=== PATIENT | male | born 1955 | race Caucasian/White ===

== ENCOUNTER → 2021-07-26 07:50 | Outpatient (CLI) | payer MEDICARE, OTHER, SELFPAY ==
--- NOTE | 2021-07-26 08:16 | MRI_ITS ---
STUDY: MRI LUMBAR SPINE WITHOUT CONTRAST REASON FOR EXAM: Male, 66 years old. Pain TECHNIQUE: Standardized fat and water weighted pulse sequences were obtained in the sagittal and axial planes. COMPARISON: 31 July 2017, 04 September 2017 FINDINGS: Appearance is stable and similar to 4 years prior in 2017. There is grade 1 degenerative retrolisthesis of L2 on L3, less than 2 mm. There is degenerative grade 1 anterolisthesis of L4 on L5 and L5 on S1, less than 2 mm. The rest of the spine is aligned. Conus terminates at L1-L2. Cauda equina is compressed at L2-L3, L4-L5 and L5-S1. There is a benign hemangioma in L2. Marrow is heterogeneously degenerated and osteoporotic. There are mildly enlarged retroperitoneal lymph nodes, largest inferior to the left renal vein at 1.97 m. However, this is stable or decreased since prior. There is no hydronephrosis. Right renal lesion has decreased and is low risk appearing. T11-T12: Disc is intact with normal height and mildly degenerative morphology and hydration signal. Facet joints are unremarkable. Canal and foramina are patent. T12-L1: Disc height is maintained. The disc has normal morphology and hydration signal. Facet joints are unremarkable. Canal and foramina are patent. L1-L2: Disc height is maintained. The disc has normal morphology and hydration signal. Facet joints are unremarkable. Canal and foramina are patent. L2-L3 has severe disc collapse and degeneration. Endplates are chronically degenerated. Facets and ligament of flavum hypertrophic degenerative. There is dorsal epidural lipomatosis. Thecal sac is moderately stenotic. Foramina are moderately to severely stenotic. L3-L4: Disc height is maintained. Disc has normal morphology with degenerated dehydrated signal. Facets and ligamentum flavum are degenerated. Thecal sac is mildly compressed. Foramina are mildly stenotic bilaterally. Lateral recesses are patent. L4-L5: Disc is severely degenerated with large bulge and decreased hydration signal. Facets are severely degenerated. Ligamentum flavum flavum is thickened. Thecal sac is severely compressed. Lateral recesses are stenotic bilaterally. Foramina are moderately to severely stenotic bilaterally. L5-S1: Disc signal is degenerated with maintained height. There is mild disc degenerative morphology with bulge. Facets and ligament of flavum are severely degenerated. There is moderate dorsal epidural lipomatosis. There is moderate thecal sac stenosis and bilateral lateral recess stenosis. Foramina are moderately stenotic bilaterally, left greater than right. MRI/Spine Lumbar (Routine) IMPRESSION: 1. Stable appearance since prior. 2. 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 Neurosurgical consultation advised. 3. Moderate thecal sac stenosis at L2-L3 and L5-S1. Electronically Signed: Unruly Houston MD at 21:52 EDT Tel , Service support ,
== END ==
PROVIDERS: PCP Family Medicine; Referring Provider Anesthesiology Pain Medicine; Visit Provider Anesthesiology Pain Medicine
DX: M51.37 Other intervertebral disc degeneration, lumbosacral region (principal); M54.17 Radiculopathy, lumbosacral region
CPT/HCPCS: 72148

== ENCOUNTER → 2022-07-17 | Outpatient (CLI) | payer MEDICARE, OTHER, SELFPAY ==
[2022-07-19 09:42] LABS: Fructosamine 289 umol/L (0-285)
== END | disposition home or self-care (01) ==
LOC: MTLAB 12:02
PROVIDERS: PCP Family Medicine; Referring Provider Orthopaedic Surgery; Visit Provider Orthopaedic Surgery
DX: E11.65 Type 2 diabetes mellitus with hyperglycemia (principal)
CPT/HCPCS: 36415; 82985

== ENCOUNTER 2022-08-10 11:36 | Inpatient (IN) | payer MEDICARE, OTHER, SELFPAY ==
--- NOTE | 2022-07-31 11:57 | EKG12_ITS ---
Test Reason : PRE OP Blood Pressure : / mmHG Vent. Rate : 062 BPM Atrial Rate : 062 BPM P-R Int : 192 ms QRS Dur : 080 ms QT Int : 406 ms P-R-T Axes : 103 021 -14 degrees QTc Int : 412 ms Normal sinus rhythm Nonspecific ST abnormality Abnormal ECG Confirmed by JOSEPHINE CAMPOS, TEA ([id number]), script editor MIKE RUBIO ([id number]) on 08/01/2022 7:16:33 AM Referred By: Michael Alexandre Confirmed By:TEA BURTON MD
[2022-07-31 12:34] LABS: Absolute Lymphocyte Count 1.33 X10^3/uL (0.83-4.51); Absolute Neutrophil Count 3.2 X10^3/uL (2.0-7.7); Basophil# 0.03 X10^3/uL; Basophil% 0.6 % (0-1); Eosinophil# 0.19 X10^3/uL; Eosinophils% 3.6 % (0-5); Hematocrit 47.3 % (40-54); Hemoglobin 16.2 g/dL (13.0-16.5); Lymphocyte # 1.33 X10^3/ul (0.83-4.51); Lymphocyte % 25.3 % (19-41); Mean Corp Hgb Conc 34.2 g/dL (32-36); Mean Corpuscular Hgb 30.7 pg (27.0-32.0); Mean Corpuscular Volume 89.6 fL (80-94); Mean Platelet Vol. 11.5 fl (6.2-12.0); Monocyte# 0.41 X10^3/uL; Monocyte% 7.8 % (0-10); NRBC Flagged by Analyzer 0 % (0-5); Neutrophil # 3.21 X10^3/uL (2.7-7.7); Neutrophil % 61.2 % (47-70); Platelet Count 166 K/mm3 (150-450); Red Blood Count 5.28 M/mm3 (4.6-6.2); White Blood Count 5.3 K/mm3 (4.4-11.0)
[2022-07-31 13:06] LABS: Anion Gap 7 (5-15); BUN 24 mg/dL (7-18); BUN/Creat Ratio 23.5 RATIO (10-20); Calcium,Total 8.9 mg/dL (8.5-10.1); Chloride 105 mmol/L (98-107); Creatinine, Serum 1.02 mg/dL (0.70-1.30); EST Glomerular Filtration Rate 78 mL/min (>60); Est Glom Filt Rate - Afr Amer 94 mL/min (>60); Glucose 147 mg/dL (74-106); Potassium 3.6 mmol/L (3.5-5.1); Sodium Level 141 mmol/L (136-145)
[2022-07-31 13:35] LABS: HIV - WCH Non-Reactive (Nonreactive); Hepatitis B Surface Antibody Non-Reactive; Hepatitis C Antibody Non-Reactive (Nonreactive)
[2022-08-02 09:12] LABS: Hepatitis A AB, Total Negative (Negative)
--- NOTE | 2022-08-09 17:01 | PCM.HP.BLA ---
History and Physical Addendum MR#: [id number] Acct: [id number] Name:JOHN BOYLE Rep #: [id number] : 1955 ? ? Provider: Dr. Michael Alexandre DO Age/Sex:? 66/M ? ? Location: [facility] [place] Status: Signed Intake Vital Signs ? 02/12/2208:20 Height 5 ft 9 in Weight: 203 lb BMI 29.9 Intake Visit Reasons:?LUMBER SPINE Allergies Penicillins Allergy (Verified 03/01/17 11:33) HivesSulfa (Sulfonamide Antibiotics) Allergy (Verified 03/01/17 11:33) Hives Medications amlodipine 10 mg tablet mg PO 02/11/22 [History Confirmed 02/11/22] atenolol 100 mg tablet mg PO 02/11/22 [History Confirmed 02/11/22] benazepril 40 mg tablet mg PO 02/11/22 [History Confirmed 02/11/22] glipizide 10 mg tablet, extended release 24 hr mg PO 02/11/22 [History Confirmed 02/11/22] hydrocodone 7.5 mg-acetaminophen 325 mg tablet tab PO 02/11/22 [History Confirmed 02/11/22] metformin 1,000 mg tablet mg PO 02/11/22 [History Confirmed 02/11/22] potassium chloride 20 mEq tablet,extended release(part/cryst) meq PO 02/11/22 [History Confirmed 02/11/22] PFSH Medical History?(Updated 02/11/22 @ 10:[address] Michael Alexandre, DO) Hx of melanoma of skin Social History Smoking Status:? Never smoker alcohol intake:? never substance use type:? does not use what type of physical activity do you participate in:? none HPI LUMBER SPINE Details: Parts of this documentation were recorded by a scribe, this documentation accurately reflects the service provided and the decisions made by me, Dr. Michael Alexandre DO JOHN MUÑOZ is a 66 year old M here today for We are having problems with our computer system today unfortunately.? Nonetheless I lost the scribe's note but I will dictate history is well as I can remember.? He has been having low back pain for 10 years.? He has a lot of pain in his legs and his back at night when he is trying to sleep.? Oddly enough he can walk for a good ways without too much neurogenic claudication.? He was scheduled for surgery by Dr. Sotomayor at the [facility] [place].? However his hemoglobin A1c was over [address] Sotomayor canceled the case.? This is understandable of course.? I told him that I would like the hemoglobin A1c to be below 7.5 before I do surgery.? He also has CLL.? He has been in remission for 9 months now. On examination he has pain with flexion or extension of his lumbar spine.? But he has good motor strength of all the major muscle groups of both lower extremities.? He has 1+ patellar reflexes bilaterally and absent Achilles reflexes bilaterally.? But he has no muscle atrophy.? He has no long tract signs.? Clonus is absent Babinski's are downgoing.? He can stand on his toes and he can stand on his heels. Review of the MRI scan demonstrates that he has marked stenosis particularly at L4-5.? He has significant stenosis but less so at L5-S1.? Apparently this are the [address] Sotomayor was going to do.? We will follow his hemoglobin A1c.? We will put him on the schedule for lumbar laminectomy decompression at L5-S1 and L4-5.? I will see him again at preop. Coding Level of Care Code Off vis,new,level 3 Diagnoses Low back pain? M54.42; M54.41; G89.29 ? ? ? Chronicity: chronic ? ? ? Back pain laterality: bilateral ? ? ? Sciatica presence: with sciatica ? ? ? Sciatica laterality: bilateral sciatica Diabetes mellitus? E11.9 Chronic lymphocytic leukemia in remission? C91.11 Spinal stenosis of lumbar region with neurogenic claudication? M48.062 Time Spent (min) 30 Assessment and Plan Assessment and Plan (1) Low back pain:
[2022-08-10] VITALS (14 sets, daily range): BP systolic 111–165; BP diastolic 67–95; PULSE 60–75; RESP 14–22; TEMP 35.6–36.8; O2SAT 91–100; BMI 29.6
[2022-08-10] MEDS: Lactated Ringers 1,000 ML 15 ML IV ×2 (06:30→10:30)
[2022-08-10 06:35] LABS: Bedside Glucose 170 mg/dL (74-106)
[2022-08-10] MEDS: Acetaminophen 500 MG Tablet 1000 MG PO (06:45)
[2022-08-10] MEDS: Clindamycin 900 MG/50 ML BAG 75 MG IV ×3 (08:06→23:21)
[2022-08-10] MEDS: THROMBIN (RECOMBINANT) 20,000 UNIT VIAL 20000 UNIT TOPICAL (08:38)
--- NOTE | 2022-08-10 08:55 | RAD_ITS ---
STUDY: X-RAY - LUMBAR SPINE REASON FOR EXAM: Male, 67 years old. LUMBAR LAMINECTOMY DECOMPRESSION L4-5 L5-S1 TECHNIQUE: 1 view(s) of the lumbar spine were obtained. COMPARISON: Comparison is made with prior study dated 02/11/2022. FINDINGS: The localization instrument is seen posterior to the L5-S1 disc space level. RAD/Spine 1 View Any Level IMPRESSION: The localization instrument is seen posterior to the L5-S1 disc space level. Electronically Signed: Navarro Sykes MD at 9:12 EDT ,
--- NOTE | 2022-08-10 11:44 | OP.PCM_ITS ---
Report of Operation Description of Surgical Findings:: Preoperative diagnosis: Spinal stenosis L5-S1 and L4-5 Postoperative diagnosis: Same Procedures: #1 lumbar laminectomy decompression L5-S1 CPT code 66925 #2 lumbar laminectomy decompression L4-5 CPT code 19681/51 Surgeon: Dr. Alexandre assistant pressman: Jose RUSSELL Anesthesia: General endotracheal administered by [facility] EBL: 40 cc Drains: Medium Hemovac Complications: None Procedure: The patient was taken to the OR where he was placed under general endotracheal anesthesia. A Mendoza catheter was inserted. Neuro monitoring placed their leads on the patient. Then moved to the Jovanny frame onto a prone position with care to protect his bony prominences his genitalia the brachial plexus bilaterally and the ulnar nerves of both elbows the neck and facial features. The back was then prepped and draped in standard fashion. I then made a longitudinal incision centered over L4-5 and L5-S1. Subcutaneous tissues were incised the length of the skin incision. First I opened the lumbar fascia to the left of the spinous processes elevate the paravertebral muscles off the lamina of S1 L5 and L4. An intraoperative x-ray was taken with a marker in place at L5-S1 that confirmed that we were indeed at that proper level. This was marked. Then opened the lumbar fascia to the right of the spinous processes elevating the paravertebral muscles off the lamina of 4 5 and S1. Thorough irrigation was carried out repeatedly in the course of the case. The super slide retractors were then put in place. We then removed the spinous processes of L5 and the spinous process of L4 with double-action rongeurs. Then thinned down the lamina on both sides with the same 45 degree Kerrison rongeurs. I then placed an angled curette under the lamina of L5 and released the ligamentum flavum underneath the lamina. Both #3 and #4 Kerrison rongeurs were used to perform the laminectomy. The laminectomy was bilateral. While the ligament was still in place to protect we open the lateral recesses with a 45 degree Kerrison rongeurs. We then began removal of the ligamentum flavum with 45 degree Kerrison rongeurs on both sides. Finished the decompression from the left side of the patient decompressing the right side at L5-S1. This completely opened the canal at that level. We then moved up and release ligamentum flavum off the underside of the lamina of L4 in same fashion. Again the #3 #4 Kerrison rongeurs were used to perform the laminectomy note that he had very hard bone and had to thin it down with double-action rongeurs. Once the laminectomy was completely performed I then had to remove the ligamentum flavum which was the major portion of the stenosis. This was done very carefully oftentimes using cottonoids under the ligament to protect the dura. This was as tedious process but I was able to remove part of the left sided ligamentum flavum and all of the ligamentum flavum on the right side all the way out the lateral recess. I then moved to the opposite side of the table that is on the right and I decompressed L5-S1 and L4-5 completely on the left with a 45 degree Kerrison rongeurs again great care was taken to protect the dura with cottonoids. Again noted we thoroughly irrigated every 10 to 50 minutes in the course of the case. This completely decompressed the nerve we checked the foramina at both levels on both sides with a hockey-stick and was found to be very open. Finally a amniotic membrane was placed directly over the exposed dura to prevent adhesions. Gelfoam was placed over the top of that. A medium Hemovac drain was inserted. We closed the lumbar fascia using [id number] suture with #1 Vicryl followed by closure of subcutaneous tissues with 2-0 Vicryl in layers in interrupted fashion. Finally the skin was approximated using skin clips.. Sterile dressi ngs were then applied the patient was then recovered in the OR moved to his hospital bed and taken to recovery in satisfactory condition. This the end of operative summary on Michael Jauregui. This is Dr. Alexandre dictating.
[2022-08-10 12:36] LABS: Bedside Glucose 147 mg/dL (74-106)
--- NOTE | 2022-08-10 13:17 | SUR.PHASEI ---
DRESSING DRY AND INTACT TO BACK
[2022-08-10] MEDS: Ondansetron 4 MG/2 ML Vial IV (14:14)
[2022-08-10] MEDS: 0.9% Saline Lock 10 ML Syringe IV (14:14)
--- NOTE | 2022-08-10 14:23 | NURSING ---
pt states that he cannot take 1000mg q8 hrs, states that is drops his WBC. states he can take 325mg dose ATC for no more than 1300mg. Dr. Alexandre paged
--- NOTE | 2022-08-10 15:02 | PN.HOSP_ITS ---
Subjective Subjective Consult requested by Dr. Alexandre for post-operative medical mgmt after L4-5 and L5-S1 laminectomy. Currently, patient feels fine. Denies any LE pain. Objective Data Objective Data Vital Signs: Vital Signs Temp Pulse Resp BP Pulse Ox O2 Del Method O2 Flow Rate 35.6 C L 65 16 115/71 97 Nasal Cannula 4 08/10/22 13:44 08/10/22 13:44 08/10/22 13:44 08/10/22 13:44 08/10/22 13:44 08/10/22 13:44 08/10/22 13:44 Oxygen Flow Rate (L/min) 4 Oxygen Delivery Method Nasal Cannula Weight: 91 kg Body Mass Index (BMI) 29.6 Intake & Output: Intake and Output for Last 24 Hours 08/08/22 08/09/22 08/10/22 23:59 23:59 23:59 Intake Total 1203.25 / 1203.25 Output Total 475 / 475 Balance 728.25 / 728.25 Lab / Micro Data Result Diagrams: 07/31/22 12:16 07/31/22 12:16 Labs: Laboratory Results - last 24 hr 08/10/22 06:15: POC Glucose 170 H 08/10/22 12:14: POC Glucose 147 H Micro: Microbiology 07/31/22 12:16 Swab (Method) Nasal Screen MRSA/MSSA - Final Radiography Diagnostic Testing: Radiology Impression Spine X-Ray 08/10/22 08:55 IMPRESSION: The localization instrument is seen posterior to the L5-S1 disc space level. Electronically Signed: Navarro Sykes MD at 9:12 EDT , Physical Exam Const alert and no apparent distress HEENT head/scalp atraumatic Resp normal respiratory effort, no retractions, no use of accessory muscles and clear to auscultation bilaterally Cardio regular rate, regular rhythm, S1 normal heart sound and S2 normal heart sound GI normal to inspection, nondistended, normoactive bowel sounds, soft to palpation and non-distended Extremity normal to inspection Assessment & Plan Assessment/Plan (1) Diabetes: QUALIFIERS: Diabetes mellitus type: type 2 Diabetes mellitus penitentiary insulin use: without penitentiary use Diabetes mellitus complication status: with hyperglycemia Qualified Code(s): E11.65 - Type 2 diabetes mellitus with hyperglycemia PLAN: Stable. Continue with his home medications Jardiance, glimepiride and metformin. Will add sliding scale insulin. I do not anticipate the patient being discharged with insulin and patient was informed of this. (2) Spinal stenosis of lumbar region with neurogenic claudication: PLAN: Status post laminectomy of L4-5 and L5-S1. Management per spine surgery Therapy has been ordered PLAN: Plan Hypertension: Currently controlled. Continue with atenolol, amlodipine VTE prophylaxis: With SCDs. Will defer chemical prophylaxis to spine surgery, if indicated. Thank you the consult. The hospital service will follow along during this patient's hospitalization. Charges/Coding Visit Charges Inpatient E&M: 80816 Subs Hosp L2
[2022-08-10] MEDS: diazePAM 5 MG Tablet PO ×2 (15:43→23:18)
[2022-08-10] MEDS: Lactated Ringers 1,000 ML 100 ML IV (16:44)
[2022-08-10] MEDS: metFORMIN HCl 1,000 MG Tablet 1000 MG PO (16:47)
[2022-08-10] MEDS: Acetaminophen 325 MG Tablet PO ×2 (16:47→23:19)
[2022-08-10] MEDS: Glimepiride 1 MG Tablet PO (16:48)
[2022-08-10] MEDS: oxyCODONE 5 MG Tablet PO ×2 (16:49→20:47)
[2022-08-10 17:15] LABS: Bedside Glucose 137 mg/dL (74-106)
[2022-08-10] MEDS: Morphine 4 MG/ML Syringe IV (19:36)
[2022-08-10 21:01] LABS: Bedside Glucose 133 mg/dL (74-106)
[2022-08-11] VITALS (8 sets, daily range): BP systolic 101–157; BP diastolic 57–82; PULSE 69–90; RESP 16–18; TEMP 36.9–37.5; O2SAT 93–97
[2022-08-11] MEDS: oxyCODONE 5 MG Tablet PO ×4 (03:56→18:42)
[2022-08-11] MEDS: Acetaminophen 325 MG Tablet PO ×2 (05:17→13:21)
--- NOTE | 2022-08-11 06:40 | NURSING ---
Kelly grier per nurse driven protocol
[2022-08-11 07:05] LABS: Bedside Glucose 152 mg/dL (74-106)
[2022-08-11] MEDS: Lisinopril 40 MG Tablet 80 MG PO (08:19)
[2022-08-11] MEDS: Glimepiride 1 MG Tablet PO ×2 (08:19→16:43)
[2022-08-11] MEDS: Empagliflozin 25 MG Tablet PO (08:19)
[2022-08-11] MEDS: Atenolol 100 MG Tablet PO (08:19)
[2022-08-11] MEDS: amLODIPine 10 MG Tablet PO (08:19)
[2022-08-11] MEDS: diazePAM 5 MG Tablet PO ×2 (08:20→18:42)
[2022-08-11] MEDS: Pregabalin 50 MG Capsule 100 MG PO (08:23)
[2022-08-11 09:07] LABS: ALB/GLOB Ratio 1.1 RATIO (0.9-2.4); AST(SGOT) 12 U/L (15-37); Alanine Aminotransfer ALT/SGPT 20 U/L (16-61); Albumin, Serum 3.1 g/dL (3.2-5.0); Alkaline Phosphatase 73 U/L (45-117); Anion Gap 6 (5-15); BUN 17 mg/dL (7-18); BUN/Creat Ratio 13.4 RATIO (10-20); Calcium,Total 7.9 mg/dL (8.5-10.1); Chloride 104 mmol/L (98-107); Creatinine, Serum 1.27 mg/dL (0.70-1.30); EST Glomerular Filtration Rate 60 mL/min (>60); Est Glom Filt Rate - Afr Amer 73 mL/min (>60); Estimated Creatinine Clearance 57.22 ml/min; Globulin 2.9 g/dL (2.2-4.2); Glucose 142 mg/dL (74-106); Potassium 3.5 mmol/L (3.5-5.1); Sodium Level 138 mmol/L (136-145)
--- NOTE | 2022-08-11 09:32 | PN.HOSP_ITS ---
Subjective Subjective Follow-up on postop medical management/status post back surgery: Patient was seen and examined. Sitting up in a chair. His pain is fairly controlled. Denied any tingling or numbness. Denied any chest pain or diz ziness or palpitation. Objective Data Objective Data Vital Signs: Vital Signs Temp Pulse Resp BP Pulse Ox O2 Del Method O2 Flow Rate 99.0 F 74 18 128/77 H 96 Room Air 4 08/11/22 08:05 08/11/22 08:05 08/11/22 08:05 08/11/22 08:05 08/11/22 08:05 08/11/22 08:05 08/10/22 15:37 Oxygen Flow Rate (L/min) 4 Oxygen Delivery Method Room Air Weight: 91 kg Body Mass Index (BMI) 29.6 Intake & Output: Intake and Output for Last 24 Hours 08/09/22 08/10/22 08/11/22 23:59 23:59 23:59 Intake Total 1798.25 / 2198.25 1840 / 1840 Output Total 1275 / 1745 1190 / 1190 Balance 523.25 / 453.25 650 / 650 Lab / Micro Data Result Diagrams: 07/31/22 12:16 08/11/22 08:11 Labs: Laboratory Results - last 24 hr 08/10/22 12:14: POC Glucose 147 H 08/10/22 16:42: POC Glucose 137 H 08/10/22 20:37: POC Glucose 133 H 08/11/22 06:33: POC Glucose 152 H 08/11/22 08:11: Sodium 138, Potassium 3.5, Chloride 104, Carbon Dioxide 28.0, Anion Gap 6, BUN 17, Creatinine 1.27, Estim Creat Clear Calc 57.22, Est GFR (MDRD) Af Amer 73, Est GFR (MDRD) Non-Af 60, BUN/Creatinine Ratio 13.4, Glucose 142 H, Calcium 7.9 L, Total Bilirubin 0.90, AST 12 L, ALT 20, Alkaline Phosphatase 73, Total Protein 6.0 L, Albumin 3.1 L, Globulin 2.9, Albumin/Globulin Ratio 1.1 Micro: Microbiology 07/31/22 12:16 Swab (Method) Nasal Screen MRSA/MSSA - Final Physical Exam Narrative Physical exam: General: Alert, Oriented x3, Cooperative, No apparent distress HEENT: Atraumatic Oral: Moist Mucosa Neck: Supple Lungs: Clear to auscultation Cardiovascular: HS I+II, regular, no murmurs Abdomen: Bowel Sounds Present, Soft, Non Tender, dressing over the back is clean and dry Extremities: No edema Skin: No rashes, No breakdown Neurological: Grossly intact Psych/Mental Status: Appropriate Assessment & Plan Assessment/Plan (1) Spinal stenosis of lumbar region with neurogenic claudication: PLAN: Plan 1. POD# 1 status post lumbar laminectomy of L4-5, L5-S1 for spinal stenosis with neurogenic claudication Pain is fairly controlled. Scheduled Tylenol, oxycodone prn and Lyrica Continue with PT and OT evaluations 2. Hypertension, controlled, continue amlodipine, atenolol, lisinopril 3. Type II DM, HgbA1c was 7.2, blood sugars fairly controlled, Continue on Jardiance, Amaryl, metformin, as well as insulin sliding scale 4. CLL, in remission 5. DVT PPx- SCDs Charges/Coding Visit Charges Inpatient E&M: 35490 Subs Hosp L2
--- NOTE | 2022-08-11 10:30 | CASEMGMT ---
RN CM Face to Face with patient for initial transition planning/care coordination assessment. RN CM introduced self and role at [facility]. Patient sitting on edge of bed, alert and oriented, at bedside. Patient willing to participate in assessment and is able to answer all questions appropriately. Care providers, pharmacy, and demographics verified. Patient wishes to discharge home, denies need for home health at this time. Patient states he has no further needs or concerns at this time. CM to follow for discharge planning needs that may arise. PCP: Pamela Newsome Specialists: Baldomero, spinal ortho; Gisela, oncologist; , Loom Checker; Ryley, security sme Preferred Pharmacy: [facility] Insurance: [facility], [employer] Prescription Benefit: yes Living Will/HPOA: yes, Cindi Jauregui LNOK: Living Arrangements: Patient lives with in a single story home with 1 step to enter. Patient is independent at home. Transportation: self, DME/HHC: Patient states he has raised toilet and access to walker at home. No previous HHC or SNF. Disposition Plan: Patient to discharge home with family support and follow-up plans in place. Jeri MERINO, RN, CM
--- NOTE | 2022-08-11 11:25 | PN.ORTHO_ITS ---
Subjective Subjective Postop day #1. Patient is only complaining of low back pain from the surgery. The leg pain that he had in both legs before the surgery is completely gone. He is very pleased with that as I am also. His dressing is dry however there is a significant amount of drainage into the Hemovac. Based on that we should leave it in 1 more day and I will remove the Hemovac tomorrow and let him go home at that time. He has been walking without any difficulty without a walker. Very pleased with his progress. Objective Data Objective Data Vital Signs: Vital Signs Temp Pulse Resp BP Pulse Ox O2 Del Method O2 Flow Rate 99.0 F 74 18 128/77 H 96 Room Air 4 08/11/22 08:05 08/11/22 08:05 08/11/22 08:05 08/11/22 08:05 08/11/22 08:05 08/11/22 08:05 08/10/22 15:37 Oxygen Flow Rate (L/min) 4 Oxygen Delivery Method Room Air Weight: 200 lb 9.93 oz Body Mass Index (BMI) 29.6 Intake & Output: Intake and Output for Last 24 Hours 08/09/22 08/10/22 08/11/22 23:59 23:59 23:59 Intake Total 1798.25 / 2198.25 1840 / 1840 Output Total 1275 / 1745 1190 / 1190 Balance 523.25 / 453.25 650 / 650 Lab / Micro Data Result Diagrams: 07/31/22 12:16 08/11/22 08:11 Labs: Laboratory Results - last 24 hr 08/10/22 12:14: POC Glucose 147 H 08/10/22 16:42: POC Glucose 137 H 08/10/22 20:37: POC Glucose 133 H 08/11/22 06:33: POC Glucose 152 H 08/11/22 08:11: Sodium 138, Potassium 3.5, Chloride 104, Carbon Dioxide 28.0, Anion Gap 6, BUN 17, Creatinine 1.27, Estim Creat Clear Calc 57.22, Est GFR (MDRD) Af Amer 73, Est GFR (MDRD) Non-Af 60, BUN/Creatinine Ratio 13.4, Glucose 142 H, Calcium 7.9 L, Total Bilirubin 0.90, AST 12 L, ALT 20, Alkaline Phospha tase 73, Total Protein 6.0 L, Albumin 3.1 L, Globulin 2.9, Albumin/Globulin Ratio 1.1 Micro: Microbiology 07/31/22 12:16 Swab (Method) Nasal Screen MRSA/MSSA - Final
[2022-08-11 11:50] LABS: Bedside Glucose 144 mg/dL (74-106)
--- NOTE | 2022-08-11 15:02 | NURSING ---
bladder scanned for less than 100ml. pt states i haven't been drinking a whole lot because I was scared about sitting on the toilet. But I will start drinking more denies any dizziness/lightheadedness. states usually peeing isn't a problem for me because I am up almost every hour during the night to pee.
[2022-08-11] MEDS: 0.9% Saline Lock 10 ML Syringe IV ×2 (16:05→20:36)
[2022-08-11] MEDS: metFORMIN HCl 1,000 MG Tablet 1000 MG PO (16:42)
[2022-08-11 17:10] LABS: Bedside Glucose 163 mg/dL (74-106)
[2022-08-11] MEDS: Morphine 4 MG/ML Syringe IV (20:35)
[2022-08-11 23:06] LABS: Bedside Glucose 125 mg/dL (74-106)
[2022-08-12] MEDS: Morphine 4 MG/ML Syringe IV (01:37)
[2022-08-12] MEDS: 0.9% Saline Lock 10 ML Syringe IV (01:38)
[2022-08-12 02:20] VITALS: BP 146/73; PULSE 84; RESP 18; TEMP 37.4; O2SAT 94
[2022-08-12] MEDS: oxyCODONE 5 MG Tablet PO ×2 (06:51→10:57)
[2022-08-12] MEDS: diazePAM 5 MG Tablet PO (06:51)
--- NOTE | 2022-08-12 07:05 | PCM.PN.HOSP ---
Subjective Subjective Follow-up on postop medical management/status post back surgery: Patient was seen and examined.? No acute complaints. He is sitting up in a chair. Objective Data Objective Data Vital Signs: Vital Signs Temp Pulse Resp BP Pulse Ox O2 Del Method O2 Flow Rate 99.3 F H 84 18 146/73 H 94 Room Air 4 08/12/22 02:20 08/12/22 02:20 08/12/22 02:20 08/12/22 02:20 08/12/22 02:20 08/12/22 02:20 08/10/22 15:37 Oxygen Flow Rate (L/min) 4 Oxygen Delivery Method Room Air Weight: 91 kg Body Mass Index (BMI) 29.6 Intake & Output: Intake and Output for Last 24 Hours 08/10/22 08/11/22 08/12/22 23:59 23:59 23:59 Intake Total 1798.25 / 2198.25 3320 / 3320 900 / 900 Output Total 1275 / 1745 1445 / 1445 1020 / 1020 Balance 523.25 / 453.25 1875 / 1875 -120 / -120 Lab / Micro Data Result Diagrams: 07/31/22 12:16 08/11/22 08:11 Labs: Laboratory Results - last 24 hr 08/11/22 06:33: POC Glucose 152 H 08/11/22 08:11: Sodium 138, Potassium 3.5, Chloride 104, Carbon Dioxide 28.0, Anion Gap 6, BUN 17, Creatinine 1.27, Estim Creat Clear Calc 57.22, Est GFR (MDRD) Af Amer 73, Est GFR (MDRD) Non-Af 60, BUN/Creatinine Ratio 13.4, Glucose 142 H, Calcium 7.9 L, Total Bilirubin 0.90, AST 12 L, ALT 20, Alkaline Phosphatase 73, Total Protein 6.0 L, Albumin 3.1 L, Globulin 2.9, Albumin/Globulin Ratio 1.1 08/11/22 11:28: POC Glucose 144 H 08/11/22 16:41: POC Glucose 163 H 08/11/22 22:05: POC Glucose 125 H Micro: Microbiology 07/31/22 12:16 Swab (Method) Nasal Screen MRSA/MSSA - Final Physical Exam Narrative Physical exam: General: Alert, Oriented x3, Cooperative, No apparent distress HEENT: Atraumatic Oral: Moist Mucosa Neck: Supple Lungs: Clear to auscultation Cardiovascular: HS I+II, regular, no murmurs Abdomen: Bowel Sounds Present, Soft, non tender, dressing over the back is clean and dry Extremities: No edema Skin: No rashes, No breakdown Neurological: Grossly intact Psych/Mental Status: Appropriate Assessment & Plan Assessment/Plan (1) Spinal stenosis of lumbar region with neurogenic claudication: PLAN: Plan 1. POD# 1 status post lumbar laminectomy of L4-5, L5-S1 for spinal stenosis with neurogenic claudication Pain is controlled. Continue on scheduled Tylenol, oxycodone prn and Lyrica Continue with PT and OT evaluations 2. Hypertension, controlled, continue amlodipine, atenolol, lisinopril 3. Type II DM, HgbA1c was 7.2, blood sugars fairly controlled, Continue on Jardiance, Amaryl, metformin, as well as insulin sliding scale 4. CLL, in remission 5. DVT PPx- SCDs Charges/Coding Visit Charges Inpatient E&M: 11276 Subs Hosp L2
[2022-08-12 07:20] LABS: Bedside Glucose 163 mg/dL (74-106)
[2022-08-12 08:13] VITALS: BP 132/78; PULSE 80; RESP 18; TEMP 37.1; O2SAT 98
[2022-08-12] MEDS: Glimepiride 1 MG Tablet PO (08:24)
[2022-08-12 09:05] VITALS: O2SAT 97
[2022-08-12] MEDS: Empagliflozin 25 MG Tablet PO (10:12)
[2022-08-12] MEDS: Pregabalin 50 MG Capsule 100 MG PO (10:12)
[2022-08-12] MEDS: Atenolol 100 MG Tablet PO (10:13)
[2022-08-12] MEDS: amLODIPine 10 MG Tablet PO (10:13)
[2022-08-12] MEDS: Lisinopril 40 MG Tablet 80 MG PO (10:13)
[2022-08-12] MEDS: Acetaminophen 325 MG Tablet PO (10:57)
[2022-08-12 11:45] LABS: Bedside Glucose 245 mg/dL (74-106)
--- NOTE | 2022-08-12 12:42 | PCM.DC.SUM ---
Providers Date of Admission: 08/11/22 Primary Care Physician: Dr. Pamela Sotomayor MD Attending Physician: This is discharge summary on patient Michael Jauregui. This patient was admitted 2 days ago on 10 August. The date of admission he underwent a two-level decompression laminectomy at L4-5 and L5-S1. He tolerated the procedure well. At discharge he relates that all of his leg pain in both legs is completely resolved. His back pain is tolerable. It is better than it was yesterday. Neurologically is intact in both lower extremities. The dressing was changed and the drain removed. The incision is dry and healing well. I gave him and his stepdaughter instructions regarding his care. The dressing is to be removed on Wednesday and on Wednesday he can start taking showers. It is to be left open to the air. I will give him oxycodone 10/325 for pain. He already has an appointment to follow-up in the office. This is the end of discharge summary on Michael Jauregui. This is Dr. Alexandre dictating. Consultations 08/10/22 13:26 Consult: Hospitalist Routine Consulting Provider: Garett Edwards Reason for Consult: Medical Management EMERGENT Consult: No MD Notified: Yes Date Notified: 08/10/22 Time Notified: 14:53 Method of Notification: Text Reason For Visit: LUMBAR LAMINECTOMY DECOMPRESSION L4-5 AND L5-S1 Diagnosis Discharge Diagnosis (1) Spinal stenosis of lumbar region with neurogenic claudication: Status: Acute Code(s): M48.062 - Spinal stenosis, lumbar region with neurogenic claudication Medications at Discharge Home Medications amlodipine 10 mg tablet 10 mg PO DAILY 02/11/22 atenolol 100 mg tablet 100 mg PO DAILY 02/11/22 benazepril 40 mg tablet 80 mg PO BID 02/11/22 metformin 1,000 mg tablet 1,000 mg PO DAILY 02/11/22 tramadol 50 mg tablet 50 mg PO PRN PRN Pain 06/12/22 glimepiride 1 mg tablet 1 mg PO BID #60 tabs 07/20/22 clindamycin HCl 300 mg capsule 300 mg PO Q6H 07/27/22 empagliflozin 25 mg tablet (Jardiance) 25 mg PO DAILY 07/27/22 hydrocodone 7.5 mg-acetaminophen 325 mg tablet 1 tab PO PRN PRN Pain 07/27/22 pregabalin 100 mg capsule 100 mg PO DAILY 07/27/22 Weight / BMI Weight Weight: 200 lb 9.93 oz Body Mass Index (BMI) 29.6 ABG / Lab / Microbiology Data Result Diagrams: 07/31/22 12:16 08/11/22 08:11 Laboratory: Laboratory Results - last 24 hr 08/11/22 16:41: POC Glucose 163 H 08/11/22 22:05: POC Glucose 125 H 08/12/22 06:46: POC Glucose 163 H 08/12/22 11:02: POC Glucose 245 H Microbiology: Microbiology 07/31/22 12:16 Swab (Method) Nasal Screen MRSA/MSSA - Final Meaningful Use Info Meaningful Use Diagnoses (Choose all that apply): None applicable Discharge Plan Admission Admit Date/Time: 08/11/22 14:47 Primary Reason for Your Visit: lumbar surgery Attending Provider: Michael Alexandre Primary Care Provider: Pamela Sotomayor Consulting Providers: Khalida White Discharge Orders/Prescriptions Prescriptions: No Action atenolol 100 mg tablet 100 mg PO DAILY benazepril 40 mg tablet 80 mg PO BID amlodipine 10 mg tablet 10 mg PO DAILY metformin 1,000 mg tablet 1,000 mg PO DAILY tramadol 50 mg tablet 50 mg PO PRN PRN (Reason: Pain) glimepiride 1 mg tablet 1 mg PO BID Qty: 60 3RF clindamycin HCl 300 mg Capsule 300 mg PO Q6H hydrocodone-acetaminophen 7.5-325 mg tablet 1 tab PO PRN PRN (Reason: Pain) Label Comments: TAKE 1 TABLET BY MOUTH ONCE DAILY NEEDED pregabalin 100 mg capsule 100 mg PO DAILY Label Comments: TAKE 1 CAPSULE BY MOUTH ONCE DAILY Jardiance 25 mg Tablet 25 mg PO DAILY Referrals / Follow Up: Pamela Sotomayor MD [Primary Care Provider] - Disposition Disposition (needs filled in before D/C Order can be placed): Home, Self Care
[2022-08-12 13:01] VITALS: BP 114/65; PULSE 74; RESP 18; TEMP 36.8; O2SAT 100
--- NOTE | 2022-08-12 14:04 | PHA.DC.MR ---
Pharmacy Service has performed discharge medication reconciliation for this patient. The patient's discharge medication list was reviewed for discrepancies and discrepancies were resolved. Home Medications amlodipine 10 mg tablet 10 mg PO DAILY 02/11/22 atenolol 100 mg tablet 100 mg PO DAILY 02/11/22 benazepril 40 mg tablet 80 mg PO BID 02/11/22 metformin 1,000 mg tablet 1,000 mg PO DAILY 02/11/22 tramadol 50 mg tablet 50 mg PO PRN PRN Pain 06/12/22 glimepiride 1 mg tablet 1 mg PO BID #60 tabs 07/20/22 clindamycin HCl 300 mg capsule 300 mg PO Q6H 07/27/22 empagliflozin 25 mg tablet (Jardiance) 25 mg PO DAILY 07/27/22 hydrocodone 7.5 mg-acetaminophen 325 mg tablet 1 tab PO PRN PRN Pain 07/27/22 pregabalin 100 mg capsule 100 mg PO DAILY 07/27/22
== END 2022-08-12 14:26 | disposition home or self-care (01) | DRG 516 ==
LOC: SDC 11:58 → MS3 11:58
PROVIDERS: Anesthesiology; Internal Medicine; Admitting Provider Orthopaedic Surgery; PCP Family Medicine; Referring Provider Orthopaedic Surgery; Visit Provider Orthopaedic Surgery
PROC: (CPT 63030; principal; 2022-08-10 07:00)
DX: M48.062 Spinal stenosis, lumbar region with neurogenic claudication (principal); C91.11 Chronic lymphocytic leukemia of B-cell type in remission; E11.65 Type 2 diabetes mellitus with hyperglycemia; Z79.4 Long term (current) use of insulin; M54.30 Sciatica, unspecified side; I10 Essential (primary) hypertension
CPT/HCPCS: 36415; 72020; 80048; 80053; 82962; 83735; 85025; 86703; 86706; 86708; 86803; 87081; 93005; 97161; 97530; J7040; J7120; A4216; J2405; J3475

== ENCOUNTER → 2023-07-17 | Outpatient (CLI) | payer MEDICARE, OTHER, SELFPAY ==
--- NOTE | 2023-07-17 11:00 | MRI_ITS ---
STUDY: MRI RIGHT SHOULDER REASON FOR EXAM: Male, 68 years old. pain, rule out RC tear TECHNIQUE: Standardized fat and water weighted pulse sequences were obtained in all 3 orthogonal planes. COMPARISON: X-ray 07/02/2023 FINDINGS: Mild supraspinatus and infraspinatus tendinosis and peritendinitis as but no macro tear. There is subscapularis tendinosis with tendon thickening, but without a demonstrated tendon tear. Normal teres minor tendon. Normal supraspinatus muscle. Normal infraspinatus muscle. Normal subscapularis muscle. Normal teres minor muscle. 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 Normal humeral head and visualized proximal humerus. Normal biceps labral complex. There is tendinosis with thickening of the biceps tendon, but without a demonstrated tear. Normal labrum. Normal capsulo- ligamentous complex. Normal rotator interval. There is mild osteoarthritis of the acromioclavicular articulation. There is a Type II morphology (curved), with a neutral orientation. There is no subacromial-subdeltoid bursal fluid. Normal visualized coracohumeral and coracoacromial ligaments. Normal quadrilateral space. Normal axillary space. Normal deltoid muscle. Normal trapezius muscle. MRI/Upper Ext Joint Only(Routine) IMPRESSION: Severe glenohumeral joint arthrosis Electronically Signed: Alli Solano MD at 21:58 EDT ,
== END | disposition home or self-care (01) ==
LOC: MRI 09:50
PROVIDERS: PCP Family Medicine; Referring Provider Orthopaedic Surgery Sports Medicine; Visit Provider Orthopaedic Surgery Sports Medicine
DX: M25.511 Pain in right shoulder (principal)
CPT/HCPCS: 73221